=== PATIENT | female | born 1985 ===

== ENCOUNTER 2021-08-20 10:32 | Emergency (ER) | payer MEDICAID ==
[2021-08-20 11:56] VITALS: BP 133/75
== END 2021-08-20 16:02 | disposition left against medical advice (07) ==
LOC: ED 10:32
DX: M54.2 Cervicalgia (principal); Z53.21 Procedure and treatment not carried out due to patient leaving prior to being seen by health care provider; V89.2XXA Person injured in unspecified motor-vehicle accident, traffic, initial encounter; Y93.89 Activity, other specified; Y92.89 Other specified places as the place of occurrence of the external cause; Y99.8 Other external cause status